=== PATIENT | female | born 1940 | race Caucasian/White ===

== ENCOUNTER 2022-04-03 08:06 | Outpatient (CLI) | payer MEDICARE | END 2022-04-03 08:07 | disposition home or self-care (01) | LOC: BICMAMMO 08:06 | PROVIDERS: ATTEND Registered Nurse Community Health | DX: N64.4 Mastodynia (principal) | CPT/HCPCS: 76642; 77066; G0279 ==

== ENCOUNTER 2022-07-15 19:44 | Observation (INO) | payer MEDICARE ==
[2022-07-15 21:29] VITALS: BMI 27.4
[2022-07-15] MEDS ORDERED: Acetaminophen 325 MG TAB PO PRN (22:03)
[2022-07-15] MEDS ORDERED: Ondansetron PF 4 MG/2 ML Vial IVP PRN (22:03)
[2022-07-15] MEDS ORDERED: Ondansetron ODT 4 MG TAB PO PRN (22:03)
[2022-07-15] MEDS ORDERED: Acetaminophen 650 MG Suppository PR PRN (22:03)
[2022-07-15] MEDS ORDERED: Nitroglycerin 0.4 MG TAB (25 Tab Bottle) SL PRN (22:15)
[2022-07-15] MEDS ORDERED: Pantoprazole 40 MG VIAL IVP SCH (22:15)
[2022-07-15 23:19] LABS: Troponin I Less than 0.010 ng/mL (< 0.028)
[2022-07-16 05:42] LABS: #Eosinphils 0.2 thou/uL (0.0-0.7); #Lymphocytes 1.6 thou/uL (1.20-3.40); #Monocytes 0.5 thou/uL (0.11-0.59); #Neutrophils 4.3 thou/uL (1.40-6.50); %Basophils 0.6 % (0.0-1.0); %Eosinophils 3.5 % (0.0-10.0); %Lymphocytes 24.5 % (21.0-51.0); %Neutrophils 64.5 % (42.0-75.0); Hemoglobin 8.4 g/dL (12.0-16.0); Mean Corpuscular HGB CONC 33.3 g/dL (32.0-36.0); Mean Corpuscular Hemoglobin 30.9 pg (27.0-31.0); Mean Corpuscular Volume 92.7 fL (78.0-98.0); Mean Platelet Volume 7.2 fL (7.4-10.4); Platelet Count 321 thou/uL (130-400); RBC Distribution Width 15.1 % (11.5-14.5); Red Blood Cell (RBC) Count 2.73 mill/uL (4.20-5.40); White Blood Cell (WBC) Count 6.6 thou/uL (4.8-10.8)
[2022-07-16 06:04] LABS: Anion Gap 13 mmol/L (10-20); BUN (Urea Nitrogen) 24 mg/dL (9.8-20.1); Calc. Creatinine Clearance 64 mL/min (70-130); Calcium 9.7 mg/dL (7.8-10.44); Carbon Dioxide 24 mmol/L (23-31); Chloride 107 mmol/L (98-107); Estimated GFR 65; Glucose 79 mg/dL (83-110); Iron 30 ug/dL (50-170); Iron Binding Capacity, Total 389 mcg/dL (265-497); Potassium 3.6 mmol/L (3.5-5.1); Sodium 140 mmol/L (136-145)
[2022-07-16 06:05] LABS: Iron 31 ug/dL (50-170); Iron Binding Capacity, Total 386 mcg/dL (265-497)
[2022-07-16] MEDS: Pantoprazole 40 MG VIAL IVP SCH (08:39)
[2022-07-17] MEDS: Pantoprazole 40 MG VIAL IVP SCH (08:25)
[2022-07-17] MEDS ORDERED: Lidocaine 1% MPF 2 ML VIAL ONE (10:18)
[2022-07-17] MEDS ORDERED: PROPOFOL 200 MG/20 ML VIAL ONE (10:18)
[2022-07-17] MEDS ORDERED: Ondansetron HCl/PF 4 MG/2 ML Vial IVP PRN (10:42)
[2022-07-17] MEDS ORDERED: Promethazine HCl 25 MG/ML VIAL IM PRN (10:42)
[2022-07-17] MEDS ORDERED: Promethazine HCl 25 MG/ML VIAL IVPB PRN (10:42)
[2022-07-17 15:51] VITALS: BP 134/64; TEMP 98
== END 2022-07-17 15:45 | disposition home or self-care (01) ==
LOC: 2SW 20:58
PROVIDERS: ADMIT Hospitalist; ATTEND Hospitalist
PROC: 0DB78ZX Excision of Stomach, Pylorus, Via Natural or Artificial Opening Endoscopic, Diagnostic (ICD-10-PCS; principal; 2022-07-17)
DX: K31.89 Other diseases of stomach and duodenum (principal); K25.4 Chronic or unspecified gastric ulcer with hemorrhage; D50.9 Iron deficiency anemia, unspecified; R07.89 Other chest pain; I10 Essential (primary) hypertension; U07.1 COVID-19; K59.09 Other constipation; Z79.899 Other long term (current) drug therapy
CPT/HCPCS: 43239; 80048; 82728; 83540; 83550; 84484; 85025; 93306; 94760 ×2; 96374; 96375; 96376; G0378 ×3; U0003; U0005; 36415; 88305; 88342; C9113; J2704

== ENCOUNTER 2023-07-16 17:00 | Outpatient (CLI) | payer MEDICARE | END 2023-07-16 17:01 | disposition home or self-care (01) | LOC: SLEEPLAB 17:00 | PROVIDERS: ATTEND Internal Medicine Critical Care Medicine | DX: G47.33 Obstructive sleep apnea (adult) (pediatric) (principal); G47.61 Periodic limb movement disorder; R53.83 Other fatigue; R06.83 Snoring | CPT/HCPCS: 95810 ==

== ENCOUNTER 2023-08-12 17:00 | Outpatient (CLI) | payer MEDICARE | END 2023-08-12 17:01 | disposition home or self-care (01) | LOC: SLEEPLAB 17:00 | PROVIDERS: ATTEND Internal Medicine Critical Care Medicine | DX: G47.33 Obstructive sleep apnea (adult) (pediatric) (principal); R53.83 Other fatigue; R06.83 Snoring; G47.10 Hypersomnia, unspecified; E66.9 Obesity, unspecified; Z68.24 Body mass index [BMI] 24.0-24.9, adult | CPT/HCPCS: 95811 ==